=== PATIENT | male | born 1930 | race Caucasian/White ===

== ENCOUNTER → 2016-03-21 | Outpatient (CLI) | payer MEDICARE, OTHER ==
--- NOTE | 2016-03-22 02:19 | REP ---
Clinical: Idiopathic hydrocephalous. Technique: AP, Maxim and lateral views of the skull. Findings: A ventriculoperitoneal shunt is identified via right parietal approach extending across the midline at the region of the anterior horn lateral ventricles. Visualized portions of the shunt appear intact. Impression: Ventriculoperitoneal shunt unchanged in appearance and position when compared with 11/18/2015. Signed by Nuno Bearden MD 03/22/2016 02:10 A
== END ==
LOC: M RAD 15:36
PROVIDERS: ATTEND Neurological Surgery
DX: G91.2 (Idiopathic) normal pressure hydrocephalus (principal); Z98.2 Presence of cerebrospinal fluid drainage device

== ENCOUNTER → 2016-04-07 | Outpatient (REF) | payer OTHER ==
[2016-04-07 12:31] LABS: ALBUMIN/GLOBULIN RATIO 1.43 (1.00-1.93); ALKALINE PHOSPHATASE 65 U/L (45-117); ALT/SGPT 27 U/L (12-78); ANION GAP 6 MEQ/L (8-16); AST/SGOT 10 U/L (15-37); BILIRUBIN,TOTAL 0.6 MG/DL (0.2-1.0); BLOOD UREA NITROGEN 24 MG/DL (7-18); CALCIUM LEVEL 9.5 MG/DL (8.8-10.2); CARBON DIOXIDE LEVEL 34 MEQ/L (21-32); CHLORIDE LEVEL 101 MEQ/L (98-107); CREATININE FOR GFR 1.17 MG/DL (0.70-1.30); GLOMERULAR FILTRATION RATE > 60.0 (>35); GLUCOSE, FASTING 224 MG/DL (83-110); POTASSIUM SERUM 4.4 MEQ/L (3.5-5.1); SODIUM LEVEL 141 MEQ/L (136-145); TOTAL PROTEIN 6.8 GM/DL (6.4-8.2)
== END ==
LOC: M SFHCPLAZ 10:05
PROVIDERS: ATTEND Internal Medicine
DX: E11.9 Type 2 diabetes mellitus without complications (principal)

== ENCOUNTER → 2016-04-21 | Outpatient (CLI) | payer OTHER ==
--- NOTE | 2016-04-21 12:05 | REP ---
Clinical: Ventriculoperitoneal shunt. Comparison: 03/21/2016. Findings: A ventriculoperitoneal shunt via right occipital approach is identified and appears intact. Calvarium is otherwise unremarkable. Impression: A right ventriculoperitoneal shunt appears intact. Signed by Nuno Bearden MD 04/21/2016 11:57 A
== END ==
LOC: M WUC 11:20
PROVIDERS: ATTEND Neurological Surgery
DX: G91.2 (Idiopathic) normal pressure hydrocephalus (principal); Z98.2 Presence of cerebrospinal fluid drainage device

== ENCOUNTER → 2016-08-04 | Outpatient (CLI) | payer OTHER ==
[2016-08-04 15:04] LABS: CREATININE FOR GFR 1.36 MG/DL (0.70-1.30)
[2016-08-04 15:05] LABS: ALBUMIN/GLOBULIN RATIO 1.33 (1.00-1.93); BILIRUBIN,TOTAL 0.6 MG/DL (0.2-1.0); CALCIUM LEVEL 9.3 MG/DL (8.8-10.2); MAGNESIUM LEVEL 2.3 MG/DL (1.8-2.4); POTASSIUM SERUM 4.9 MEQ/L (3.5-5.1)
== END ==
LOC: M WUC 09:36
PROVIDERS: ATTEND Internal Medicine
DX: E11.9 Type 2 diabetes mellitus without complications (principal); I10 Essential (primary) hypertension; E78.00 Pure hypercholesterolemia, unspecified

== ENCOUNTER → 2016-09-26 | Outpatient (REF) | payer OTHER ==
[~2016-09-26] MED LIST: ASPI1TAB PO; CORE12.5 PO; DIGO0.127 PO; GLIP2.5T6 PO; JANU50TA22 PO; LASI20TA PO; LEXA1TAB2 PO; PROS5TAB PO; RANI15TA PO; REME15TA PO; SIMV10TA2 PO; SPIR25TA2 PO; XARE20TA PO
[2016-09-26 17:45] LABS: MEAN CORPUSCULAR HEMOGLOBIN 31.9 pg (27.0-33.0); MEAN CORPUSCULAR VOLUME 93.8 fl (80.0-96.0); RED CELL DISTRIBUTION WIDTH 13.1 % (11.5-14.5)
[2016-09-26 18:22] LABS: ALBUMIN 4.2 GM/DL (3.2-5.2); ALBUMIN/GLOBULIN RATIO 1.45 (1.00-1.93); BILIRUBIN,TOTAL 0.7 MG/DL (0.2-1.0); CALCIUM LEVEL 9.1 MG/DL (8.8-10.2); CREATININE FOR GFR 1.25 MG/DL (0.70-1.30); GLOMERULAR FILTRATION RATE 58.4 (>35); POTASSIUM SERUM 4.4 MEQ/L (3.5-5.1); TOTAL PROTEIN 7.1 GM/DL (6.4-8.2)
== END ==
LOC: M SFHCPLAZ 15:19
PROVIDERS: ATTEND Nurse Practitioner Adult Health
DX: R53.83 Other fatigue (principal)
CPT/HCPCS: 36415; 80053; 85027; G0463

== ENCOUNTER 2016-10-07 17:06 | Emergency (ER) | payer OTHER ==
[~2016-10-07] VITALS: Ht 167.6 cm; Wt 57.0 kg
[2016-10-07] MEDS ORDERED: SIMV10TA2 PO (17:20)
[2016-10-07] MEDS ORDERED: LEXA1TAB2 PO (17:20)
[2016-10-07] MEDS ORDERED: LASI20TA PO (17:20)
[2016-10-07] MEDS ORDERED: CORE12.5 PO (17:20)
[2016-10-07] MEDS ORDERED: RANI15TA PO (17:20)
[2016-10-07] MEDS ORDERED: JANU50TA22 PO (17:20)
[2016-10-07] MEDS ORDERED: PROS5TAB PO (17:20)
[2016-10-07] MEDS ORDERED: ASPI1TAB PO (17:25)
[2016-10-07] MEDS ORDERED: REME15TA PO (17:25)
[2016-10-07] MEDS ORDERED: GLIP2.5T6 PO (17:25)
[2016-10-07] MEDS ORDERED: DIGO0.127 PO (17:25)
[2016-10-07] MEDS ORDERED: SPIR25TA2 PO (17:25)
[2016-10-07] MEDS ORDERED: XARE20TA PO (17:25)
[2016-10-07] MEDS ORDERED: NS 1,000 ML IV SCH (18:30)
[2016-10-07 18:41] VITALS: BP 119/56
[2016-10-07 19:01] LABS: BASO % 0.9 % (0.0-1.0); EOS # 0.2 K/mm3 (0.0-0.50); EOS % 3.2 % (0.0-3.0); LARGE UNSTAINED CELL # 0.2 K/mm3 (0.0-0.4); LARGE UNSTAINED CELL % 3.5 % (0.0-4.0); LYMPH # 1.5 K/mm3 (1.5-4.5); LYMPH % 25.2 % (24.0-44.0); MEAN CORPUSCULAR HEMOGLOBIN 31.9 pg (27.0-33.0); MEAN CORPUSCULAR HGB CONC 34.4 g/dl (32.0-36.5); MEAN CORPUSCULAR VOLUME 92.8 fl (80.0-96.0); MONO # 0.5 K/mm3 (0.0-0.8); MONO % 9.2 % (0.0-5.0); PLATELET COUNT, AUTOMATED 171 k/mm3 (150-450); RED CELL DISTRIBUTION WIDTH 13.2 % (11.5-14.5); WHITE BLOOD COUNT 5.2 K/mm3 (4.0-10.0)
[2016-10-07 19:34] LABS: ALBUMIN 3.6 GM/DL (3.2-5.2); ALBUMIN/GLOBULIN RATIO 1.24 (1.00-1.93); ALKALINE PHOSPHATASE 59 U/L (45-117); ALT/SGPT 28 U/L (12-78); ANION GAP 8 MEQ/L (8-16); AST/SGOT 11 U/L (15-37); BILIRUBIN,DIRECT 0.1 MG/DL (0.0-0.2); BILIRUBIN,TOTAL 0.4 MG/DL (0.2-1.0); BLOOD UREA NITROGEN 23 MG/DL (7-18); CALCIUM LEVEL 8.8 MG/DL (8.8-10.2); CARBON DIOXIDE LEVEL 31 MEQ/L (21-32); CHLORIDE LEVEL 103 MEQ/L (98-107); CREATININE FOR GFR 1.14 MG/DL (0.70-1.30); GLOMERULAR FILTRATION RATE > 60.0 (>35); GLUCOSE, FASTING 160 MG/DL (83-110); POTASSIUM SERUM 4.1 MEQ/L (3.5-5.1); SODIUM LEVEL 142 MEQ/L (136-145); TOTAL PROTEIN 6.5 GM/DL (6.4-8.2)
--- NOTE | 2016-10-07 20:13 | REP ---
PA and lateral chest: Comparison is by 2013. 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 There is a dual chamber pacemaker, unchanged. The lung gardner are clear. The cardiac size is normal The miriam, mediastinum, and bony thorax are unremarkable. Impression: Negative PA and lateral chest. There is no interval change. Signed by Kalia Moody MD 10/07/2016 08:05 P
--- NOTE | 2016-10-08 10:16 | ECGEPIP ---
Stationary ECG Study [facility] - ED Test Date: 2016-10-07 Pat Name: CLEMENTE FELDMAN Department: Room: - Gender: M Store Clerk Cashier: : [id number] Requested By: TASNEEM Armendariz Order Number: [id number] Reading MD: Mague Basurto Measurements Intervals [place] Rate: 59 P: 134 UT: 191 QRS: -32 QRSD: 148 T: 58 QT: 418 QTc: 417 Interpretive Statements ELECTRONIC ATRIAL PACEMAKER MARKED LEFT AXIS DEVIATION RIGHT BUNDLE BRANCH BLOCK POSSIBLE SEPTAL MYOCARDIAL INFARCTION, PROBABLY OLD INCREASED RATE 06/27/11 Electronically Signed On 10-08-2016 10:16:24 EDT by Mague Basurto
== END 2016-10-07 20:44 | disposition home or self-care (01) ==
LOC: M ED 17:06
DX: E86.0 Dehydration (principal); I48.91 Unspecified atrial fibrillation; I50.9 Heart failure, unspecified; E11.9 Type 2 diabetes mellitus without complications; N40.0 Benign prostatic hyperplasia without lower urinary tract symptoms; Z95.0 Presence of cardiac pacemaker; Z79.82 Long term (current) use of aspirin; Z79.02 Long term (current) use of antithrombotics/antiplatelets; Z79.899 Other long term (current) drug therapy

== ENCOUNTER → 2017-03-13 | Outpatient (REF) | payer MEDICARE ==
[2017-03-13 19:01] LABS: HEMATOCRIT 38.5 % (42.0-52.0); HEMOGLOBIN 12.8 g/dl (14.0-18.0); MEAN CORPUSCULAR HEMOGLOBIN 31.4 pg (27.0-33.0); MEAN CORPUSCULAR HGB CONC 33.2 g/dl (32.0-36.5); MEAN CORPUSCULAR VOLUME 94.4 fl (80.0-96.0); PLATELET COUNT, AUTOMATED 216 10^3/uL (150-450); RED BLOOD COUNT 4.08 10^6/uL (4.30-6.10); RED CELL DISTRIBUTION WIDTH 12.7 % (11.5-14.5); WHITE BLOOD COUNT 5.4 10^3/uL (4.0-10.0)
[2017-03-13 19:20] LABS: ESTIMATED AVERAGE GLUCOSE 143 MG/DL (60-110); HEMOGLOBIN A1c 6.6 %
[2017-03-13 19:26] LABS: FOLATE 16.6 NG/ML; VITAMIN B12 LEVEL 294 PG/ML
[2017-03-13 19:31] LABS: ALBUMIN 4.1 GM/DL (3.2-5.2); ALBUMIN/GLOBULIN RATIO 1.21 (1.00-1.93); ALKALINE PHOSPHATASE 66 U/L (45-117); ALT/SGPT 26 U/L (12-78); ANION GAP 6 MEQ/L (8-16); AST/SGOT 13 U/L (7-37); BILIRUBIN,TOTAL 0.6 MG/DL (0.2-1.0); BLOOD UREA NITROGEN 27 MG/DL (7-18); CALCIUM LEVEL 8.9 MG/DL (8.8-10.2); CARBON DIOXIDE LEVEL 36 MEQ/L (21-32); CHLORIDE LEVEL 97 MEQ/L (98-107); CREATININE FOR GFR 1.35 MG/DL (0.70-1.30); GLOMERULAR FILTRATION RATE 53.3 (>35); GLUCOSE, FASTING 143 MG/DL (83-110); MAGNESIUM LEVEL 2.5 MG/DL (1.8-2.4); POTASSIUM SERUM 4.4 MEQ/L (3.5-5.1); SODIUM LEVEL 139 MEQ/L (136-145); THYROID STIMULATING HORMONE 0.875 uIU/ML (0.358-3.740); TOTAL PROTEIN 7.5 GM/DL (6.4-8.2)
== END ==
LOC: M SFHCPLAZ 16:49
DX: E11.9 Type 2 diabetes mellitus without complications (principal); I10 Essential (primary) hypertension; R53.82 Chronic fatigue, unspecified; Z51.81 Encounter for therapeutic drug level monitoring; Z79.01 Long term (current) use of anticoagulants
CPT/HCPCS: 82746

== ENCOUNTER 2017-04-24 16:02 | Inpatient (IN) | payer MEDICARE ==
[2017-04-24] MEDS: NS 1,000 ML IV (16:38)
[2017-04-24] MEDS: NS 500 ML IV (17:15)
[2017-04-24 17:19] LABS: BASO % 0.6 % (0.0-1.0); EOS # 0.1 10^3/uL (0.0-0.50); EOS % 1.7 % (0.0-3.0); HEMATOCRIT 33.5 % (42.0-52.0); HEMOGLOBIN 11.6 g/dl (14.0-18.0); IMMATURE GRANULOCYTE % 0.6 % (0-3.0); LYMPH # 1.6 10^3/uL (1.5-4.5); LYMPH % 30.3 % (24.0-44.0); MEAN CORPUSCULAR HGB CONC 34.6 g/dl (32.0-36.5); MEAN CORPUSCULAR VOLUME 92.3 fl (80.0-96.0); MONO # 0.8 10^3/uL (0.0-0.8); MONO % 14.5 % (0.0-5.0); NEUTROPHILS # 2.7 10^3/uL (1.8-7.7); NEUTROPHILS % 52.3 % (36.0-66.0); PLATELET COUNT, AUTOMATED 213 10^3/uL (150-450); RED BLOOD COUNT 3.63 10^6/uL (4.30-6.10); RED CELL DISTRIBUTION WIDTH 12.8 % (11.5-14.5); WHITE BLOOD COUNT 5.2 10^3/uL (4.0-10.0)
[2017-04-24 17:34] LABS: ANION GAP 4 MEQ/L (8-16); BLOOD UREA NITROGEN 23 MG/DL (7-18); CALCIUM LEVEL 8.5 MG/DL (8.8-10.2); CARBON DIOXIDE LEVEL 34 MEQ/L (21-32); CHLORIDE LEVEL 99 MEQ/L (98-107); CREATININE FOR GFR 0.97 MG/DL (0.70-1.30); GLOMERULAR FILTRATION RATE > 60.0 (>35); GLUCOSE, FASTING 126 MG/DL (70-100); POTASSIUM SERUM 4.4 MEQ/L (3.5-5.1); SODIUM LEVEL 137 MEQ/L (136-145)
[2017-04-24 17:37] LABS: AMMONIA 11 uMOL/L (<32)
[2017-04-24 17:39] LABS: ALBUMIN 3.7 GM/DL (3.2-5.2); ALBUMIN/GLOBULIN RATIO 1.23 (1.00-1.93); ALKALINE PHOSPHATASE 72 U/L (45-117); ALT/SGPT 30 U/L (12-78); AST/SGOT 14 U/L (7-37); BILIRUBIN,DIRECT 0.1 MG/DL (0.0-0.2); BILIRUBIN,TOTAL 0.6 MG/DL (0.2-1.0); CPK CREATINE PHOSPHOKINASE 38 U/L (39-308); SALICYLATE LEVEL < 1.7 MG/DL (5.0-30.0); TOTAL PROTEIN 6.7 GM/DL (6.4-8.2); TROPONIN I 0.02 NG/ML (< 0.10)
[2017-04-24 17:42] LABS: LACTIC ACID SEPSIS PROTOCOL 1.1 MMOL/L (0.4-2.0)
[2017-04-24 17:44] LABS: ACETAMINOPHEN LEVEL < 2.0 UG/ML (10.0-30.0); ETHYL ALCOHOL (ETHANOL) < 0.003 % (0.000-0.010)
[2017-04-24 17:45] LABS: CK-MB VALUE MASS 1.2 NG/ML (0.0-3.6); MB/CK RELATIVE INDEX 3.15 (< OR =4)
[2017-04-24 18:14] LABS: DIGOXIN LEVEL 1.3 NG/ML (0.5-2.0)
[2017-04-24 19:27] LABS: KETONE, URINE AUTO RFX NEGATIVE (NEGATIVE); LEUKOCYTE ESTERASE UR AUTO RFX NEGATIVE (NEGATIVE); NITRITE, URINE AUTO RFX NEGATIVE (NEGATIVE); RBC, URINE AUTO RFX 1 /HPF (0-3); SPECIFIC GRAVITY UR AUTO RFX 1.017 (1.002-1.035); SQUAM EPITHELIAL CELL UR AURFX 0 /HPF (0-6); WBC, URINE AUTO RFX 0 /HPF (0-3)
[2017-04-24 19:49] LABS: BEDSIDE GLUCOSE 130 MG/DL (83-110)
[2017-04-24] MEDS ORDERED: ACETAMINOPHEN TAB 650MG DOSE (2X325MG) PO (20:30)
[2017-04-24] MEDS: NS 0.45% 1,000 ML IV (23:30)
[2017-04-25 07:13] LABS: HEMATOCRIT 29.3 % (42.0-52.0); HEMOGLOBIN 10.4 g/dl (14.0-18.0); MEAN CORPUSCULAR HEMOGLOBIN 32.9 pg (27.0-33.0); MEAN CORPUSCULAR HGB CONC 35.5 g/dl (32.0-36.5); MEAN CORPUSCULAR VOLUME 92.7 fl (80.0-96.0); PLATELET COUNT, AUTOMATED 189 10^3/uL (150-450); RED BLOOD COUNT 3.16 10^6/uL (4.30-6.10); RED CELL DISTRIBUTION WIDTH 12.8 % (11.5-14.5)
[2017-04-25 07:36] LABS: ANION GAP 7 MEQ/L (8-16); BLOOD UREA NITROGEN 17 MG/DL (7-18); CALCIUM LEVEL 8.1 MG/DL (8.8-10.2); CARBON DIOXIDE LEVEL 28 MEQ/L (21-32); CHLORIDE LEVEL 102 MEQ/L (98-107); CREATININE FOR GFR 0.72 MG/DL (0.70-1.30); GLOMERULAR FILTRATION RATE > 60.0 (>35); GLUCOSE, FASTING 133 MG/DL (70-100); POTASSIUM SERUM 4.3 MEQ/L (3.5-5.1); SODIUM LEVEL 137 MEQ/L (136-145)
[2017-04-25] MEDS ORDERED: ENOXAPARIN 40 MG/0.4 ML SYRINGE (J1650) SC (09:00)
[2017-04-25] MEDS ORDERED: VARIBAR NECTAR 40% w/v 240ML SUSP BTL As Ordered (12:14)
[2017-04-25] MEDS ORDERED: VARIBAR PUDDING 40% w/v 230ML TUBE As Ordered (12:14)
[2017-04-25] MEDS ORDERED: E-Z-PAQUE 96% w/w SUSP 176GM BTL As Ordered (12:15)
[2017-04-25] MEDS ORDERED: DEXTROSE 50% 50 ML SYRINGE IV (16:45)
[2017-04-25] MEDS ORDERED: GLUCOSE 4 GM CHEW TABLET PO (16:45)
[2017-04-25] MEDS ORDERED: GLUCAGON FOR INJ 1 MG VIAL (J1610) SC (16:45)
[2017-04-25] MEDS ORDERED: RIVAROXABAN 20 MG TAB (XARELTO) PO (18:00)
[2017-04-25] MEDS: HumaLOG INSULIN (NovoLOG) PER UNIT SC (18:00)
[2017-04-25 18:46] LABS: VITAMIN B12 LEVEL 235 PG/ML (247-911)
[2017-04-25] MEDS: D5W/0.9% SODIUM CHLORIDE 1,000 ML IV (19:42)
[2017-04-25] MEDS: THIAMINE HCL 200 MG/2 ML VIAL (J3411) IV (21:05)
[2017-04-26] MEDS: HumaLOG INSULIN (NovoLOG) PER UNIT SC ×3 (00:13→12:55)
[2017-04-26] MEDS: CYANOCOBALAMIN 1,000 MCG/ML VIAL (J3420) IM ×2 (00:16→08:50)
[2017-04-26 00:24] LABS: BEDSIDE GLUCOSE 169 MG/DL (83-110)
[2017-04-26] MEDS: D5W/0.9% SODIUM CHLORIDE 1,000 ML IV ×2 (06:23→17:57)
[2017-04-26 06:57] LABS: HEMATOCRIT 28.7 % (42.0-52.0); HEMOGLOBIN 10.1 g/dl (14.0-18.0); MEAN CORPUSCULAR HEMOGLOBIN 32.6 pg (27.0-33.0); MEAN CORPUSCULAR HGB CONC 35.2 g/dl (32.0-36.5); MEAN CORPUSCULAR VOLUME 92.6 fl (80.0-96.0); PLATELET COUNT, AUTOMATED 194 10^3/uL (150-450); RED CELL DISTRIBUTION WIDTH 12.9 % (11.5-14.5); WHITE BLOOD COUNT 4.7 10^3/uL (4.0-10.0)
[2017-04-26 07:16] LABS: ANION GAP 7 MEQ/L (8-16); BLOOD UREA NITROGEN 12 MG/DL (7-18); CALCIUM LEVEL 7.8 MG/DL (8.8-10.2); CARBON DIOXIDE LEVEL 27 MEQ/L (21-32); CHLORIDE LEVEL 104 MEQ/L (98-107); CREATININE FOR GFR 0.72 MG/DL (0.70-1.30); GLOMERULAR FILTRATION RATE > 60.0 (>35); GLUCOSE, FASTING 173 MG/DL (70-100); POTASSIUM SERUM 3.7 MEQ/L (3.5-5.1); SODIUM LEVEL 138 MEQ/L (136-145)
[2017-04-26] MEDS: THIAMINE HCL 200 MG/2 ML VIAL (J3411) IV (08:50)
[2017-04-26 11:50] LABS: BEDSIDE GLUCOSE 201 MG/DL (83-110)
[2017-04-26 12:45] LABS: BEDSIDE GLUCOSE 188 MG/DL (83-110)
== END 2017-04-26 18:28 | disposition short-term general hospital (02) | DRG 71 ==
LOC: M MSPAV 04-25 10:05 → M ED 16:02 → M ED INP 20:23
DX: G93.41 Metabolic encephalopathy (principal); G91.2 (Idiopathic) normal pressure hydrocephalus; E46 Unspecified protein-calorie malnutrition; M50.00 Cervical disc disorder with myelopathy, unspecified cervical region; I48.0 Paroxysmal atrial fibrillation; E11.9 Type 2 diabetes mellitus without complications; G47.33 Obstructive sleep apnea (adult) (pediatric); E86.0 Dehydration; E53.8 Deficiency of other specified B group vitamins; N40.0 Benign prostatic hyperplasia without lower urinary tract symptoms; Z95.0 Presence of cardiac pacemaker; I49.5 Sick sinus syndrome; I11.0 Hypertensive heart disease with heart failure; F03.90 Unspecified dementia, unspecified severity, without behavioral disturbance, psychotic disturbance, mood disturbance, and anxiety; Z66 Do not resuscitate; Z79.82 Long term (current) use of aspirin; Z79.899 Other long term (current) drug therapy; I50.9 Heart failure, unspecified; G62.9 Polyneuropathy, unspecified; R62.7 Adult failure to thrive; R13.10 Dysphagia, unspecified

== ENCOUNTER 2017-04-29 21:05 | Inpatient (IN) | payer MEDICARE ==
[~2017-04-29 21:05] MED LIST changes: +ACETAMINOPHEN TAB 650MG DOSE (2X325MG) PO; -ASPI1TAB PO; -CORE12.5 PO; -DIGO0.127 PO; -GLIP2.5T6 PO; -JANU50TA22 PO; -LASI20TA PO; -LEXA1TAB2 PO; +ONDANSETRON 4MG/2ML VIAL (J2405) IV; -PROS5TAB PO; -RANI15TA PO; -REME15TA PO; -SIMV10TA2 PO; -SPIR25TA2 PO; -XARE20TA PO
[2017-04-29] MEDS ORDERED: GLUCAGON FOR INJ 1 MG VIAL (J1610) SC (22:45)
[2017-04-29] MEDS ORDERED: GLUCOSE 4 GM CHEW TABLET PO (22:45)
[2017-04-29] MEDS ORDERED: DEXTROSE 50% 50 ML SYRINGE IV (22:45)
[2017-04-29] MEDS: HumaLOG INSULIN (NovoLOG) PER UNIT SC (22:56)
[2017-04-29 22:59] LABS: BEDSIDE GLUCOSE 263 MG/DL (83-110)
[2017-04-30 03:32] LABS: AMORPHOUS SEDIMENT SMALL (NEGATIVE); APPEARANCE, URINE CLEAR (CLEAR); BACTERIA, URINE AUTO NEGATIVE (NEGATIVE); BILIRUBIN, URINE AUTO NEGATIVE (NEGATIVE); BLOOD, URINE BLOOD NEGATIVE (NEGATIVE); COLOR, URINE YELLOW (YELLOW); GLUCOSE, URINE (UA) AUTO 3+ mg/dL (NEGATIVE); KETONE, URINE AUTO NEGATIVE (NEGATIVE); LEUKOCYTE ESTERASE, URINE AUTO NEGATIVE (NEGATIVE); MUCUS, URINE SMALL (NEGATIVE); NITRITE, URINE AUTO NEGATIVE (NEGATIVE); PROTEIN, URINE AUTO NEGATIVE (NEGATIVE); RBC, URINE AUTO 6 /HPF (0-3); SPECIFIC GRAVITY URINE AUTO 1.012 (1.002-1.035); SQUAMOUS EPITHELIAL CELL UR AU 0 /HPF (0-6); UROBILINOGEN, URINE AUTO 0.2 mg/dL (0.0-2.0); WBC, URINE AUTO 12 /HPF (0-3)
[2017-04-30] MEDS ORDERED: METHYLPHENIDATE 5 MG TAB PO ×2 (07:00→09:00)
[2017-04-30 07:48] LABS: HEMATOCRIT 25.5 % (42.0-52.0); HEMOGLOBIN 8.9 g/dl (14.0-18.0); MEAN CORPUSCULAR HEMOGLOBIN 32.5 pg (27.0-33.0); MEAN CORPUSCULAR HGB CONC 34.9 g/dl (32.0-36.5); MEAN CORPUSCULAR VOLUME 93.1 fl (80.0-96.0); PLATELET COUNT, AUTOMATED 205 10^3/uL (150-450); RED BLOOD COUNT 2.74 10^6/uL (4.30-6.10); RED CELL DISTRIBUTION WIDTH 13.2 % (11.5-14.5)
[2017-04-30] MEDS: HumaLOG INSULIN (NovoLOG) PER UNIT SC ×4 (08:13→21:27)
[2017-04-30] MEDS: RIVAROXABAN 20 MG TAB (XARELTO) PO (08:14)
[2017-04-30] MEDS: ASPIRIN 81 MG ENTERIC TAB PO (08:14)
[2017-04-30] MEDS: ESCITALOPRAM OXALATE 10 MG TAB (LEXAPRO) PO (08:14)
[2017-04-30] MEDS: FINASTERIDE 5 MG TAB PO (08:15)
[2017-04-30 08:22] LABS: ALBUMIN 2.4 GM/DL (3.2-5.2); ALBUMIN/GLOBULIN RATIO 0.75 (1.00-1.93); ALKALINE PHOSPHATASE 51 U/L (45-117); ALT/SGPT 25 U/L (12-78); ANION GAP 6 MEQ/L (8-16); AST/SGOT 14 U/L (7-37); BILIRUBIN,TOTAL 0.4 MG/DL (0.2-1.0); BLOOD UREA NITROGEN 8 MG/DL (7-18); CALCIUM LEVEL 7.9 MG/DL (8.8-10.2); CARBON DIOXIDE LEVEL 30 MEQ/L (21-32); CHLORIDE LEVEL 106 MEQ/L (98-107); CREATININE FOR GFR 0.72 MG/DL (0.70-1.30); GLOMERULAR FILTRATION RATE > 60.0 (>35); GLUCOSE, FASTING 141 MG/DL (70-100); POTASSIUM SERUM 3.6 MEQ/L (3.5-5.1); PREALBUMIN 7.1 MG/DL (20.0-40.0); SODIUM LEVEL 142 MEQ/L (136-145); TOTAL PROTEIN 5.6 GM/DL (6.4-8.2)
[2017-04-30] MEDS: CARVedilol 3.125 MG TAB PO ×2 (09:00→21:27)
[2017-04-30] MEDS: DIGOXIN 0.125 MG TAB PO (09:00)
[2017-04-30] MEDS ORDERED: METHYLPHENIDATE 20 MG SR TAB (RITALIN SR) PO (09:24)
[2017-04-30] MEDS: SPIRONOLACTONE 25 MG TAB PO (09:59)
[2017-04-30] MEDS: FUROSEMIDE 20 MG TAB PO (10:01)
[2017-04-30] MEDS: METHYLPHENIDATE 20 MG SR TAB (RITALIN SR) PO (10:24)
[2017-04-30 15:37] LABS: BEDSIDE GLUCOSE 150 MG/DL (83-110)
[2017-04-30 15:37] LABS: BEDSIDE GLUCOSE 184 MG/DL (83-110)
[2017-04-30 16:55] LABS: BEDSIDE GLUCOSE 195 MG/DL (83-110)
[2017-04-30] MEDS: CYANOCOBALAMIN 1,000 MCG/ML VIAL (J3420) SC (17:26)
[2017-04-30] MEDS: THIAMINE HCL 200 MG/2 ML VIAL (J3411) IV (17:26)
[2017-04-30 20:28] LABS: BEDSIDE GLUCOSE 149 MG/DL (83-110)
[2017-04-30] MEDS: SIMVASTATIN 10 MG TAB PO (21:27)
[2017-04-30] MEDS: SENNA 8.6 MG TAB (SENOKOT) PO (21:27)
[2017-05-01 06:05] LABS: HEMATOCRIT 26.6 % (42.0-52.0); HEMOGLOBIN 9.1 g/dl (14.0-18.0); MEAN CORPUSCULAR HEMOGLOBIN 31.6 pg (27.0-33.0); MEAN CORPUSCULAR HGB CONC 34.2 g/dl (32.0-36.5); MEAN CORPUSCULAR VOLUME 92.4 fl (80.0-96.0); PLATELET COUNT, AUTOMATED 212 10^3/uL (150-450); RED BLOOD COUNT 2.88 10^6/uL (4.30-6.10); RED CELL DISTRIBUTION WIDTH 12.8 % (11.5-14.5); WHITE BLOOD COUNT 5.4 10^3/uL (4.0-10.0)
[2017-05-01] MEDS: METHYLPHENIDATE 20 MG SR TAB (RITALIN SR) PO (06:29)
[2017-05-01 06:31] LABS: ALBUMIN 2.4 GM/DL (3.2-5.2); ALBUMIN/GLOBULIN RATIO 0.75 (1.00-1.93); ALKALINE PHOSPHATASE 51 U/L (45-117); ALT/SGPT 24 U/L (12-78); ANION GAP 6 MEQ/L (8-16); AST/SGOT 12 U/L (7-37); BILIRUBIN,TOTAL 0.5 MG/DL (0.2-1.0); BLOOD UREA NITROGEN 8 MG/DL (7-18); CALCIUM LEVEL 8.2 MG/DL (8.8-10.2); CARBON DIOXIDE LEVEL 31 MEQ/L (21-32); CHLORIDE LEVEL 104 MEQ/L (98-107); CREATININE FOR GFR 0.73 MG/DL (0.70-1.30); GLOMERULAR FILTRATION RATE > 60.0 (>35); GLUCOSE, FASTING 141 MG/DL (70-100); MAGNESIUM LEVEL 1.7 MG/DL (1.8-2.4); POTASSIUM SERUM 3.5 MEQ/L (3.5-5.1); SODIUM LEVEL 141 MEQ/L (136-145); TOTAL PROTEIN 5.6 GM/DL (6.4-8.2)
[2017-05-01] MEDS: HumaLOG INSULIN (NovoLOG) PER UNIT SC ×4 (08:08→21:00)
[2017-05-01] MEDS: ASPIRIN 81 MG ENTERIC TAB PO (09:39)
[2017-05-01] MEDS: CYANOCOBALAMIN 1,000 MCG/ML VIAL (J3420) SC (09:39)
[2017-05-01] MEDS: SPIRONOLACTONE 25 MG TAB PO (09:39)
[2017-05-01] MEDS: RIVAROXABAN 20 MG TAB (XARELTO) PO (09:39)
[2017-05-01] MEDS: THIAMINE HCL 200 MG/2 ML VIAL (J3411) IV (09:39)
[2017-05-01] MEDS: ESCITALOPRAM OXALATE 10 MG TAB (LEXAPRO) PO (09:39)
[2017-05-01] MEDS: CARVedilol 3.125 MG TAB PO ×2 (09:40→22:17)
[2017-05-01] MEDS: FINASTERIDE 5 MG TAB PO (09:40)
[2017-05-01] MEDS: FUROSEMIDE 20 MG TAB PO (09:40)
[2017-05-01] MEDS: DIGOXIN 0.125 MG TAB PO (09:41)
[2017-05-01 12:22] LABS: BEDSIDE GLUCOSE 272 MG/DL (83-110)
[2017-05-01 21:52] LABS: BEDSIDE GLUCOSE 192 MG/DL (83-110)
[2017-05-01 21:52] LABS: BEDSIDE GLUCOSE 174 MG/DL (83-110)
[2017-05-01] MEDS: SIMVASTATIN 10 MG TAB PO (22:16)
[2017-05-01] MEDS: SENNA 8.6 MG TAB (SENOKOT) PO (22:17)
[2017-05-02 06:16] LABS: HEMATOCRIT 27.7 % (42.0-52.0); HEMOGLOBIN 9.2 g/dl (14.0-18.0); MEAN CORPUSCULAR HEMOGLOBIN 31.1 pg (27.0-33.0); MEAN CORPUSCULAR HGB CONC 33.2 g/dl (32.0-36.5); MEAN CORPUSCULAR VOLUME 93.6 fl (80.0-96.0); PLATELET COUNT, AUTOMATED 235 10^3/uL (150-450); RED BLOOD COUNT 2.96 10^6/uL (4.30-6.10); RED CELL DISTRIBUTION WIDTH 12.8 % (11.5-14.5); WHITE BLOOD COUNT 5.2 10^3/uL (4.0-10.0)
[2017-05-02] MEDS: METHYLPHENIDATE 20 MG SR TAB (RITALIN SR) PO (06:20)
[2017-05-02 06:32] LABS: ALBUMIN 2.6 GM/DL (3.2-5.2); ALBUMIN/GLOBULIN RATIO 0.76 (1.00-1.93); ALKALINE PHOSPHATASE 55 U/L (45-117); ALT/SGPT 26 U/L (12-78); ANION GAP 5 MEQ/L (8-16); AST/SGOT 11 U/L (7-37); BILIRUBIN,TOTAL 0.5 MG/DL (0.2-1.0); BLOOD UREA NITROGEN 11 MG/DL (7-18); CALCIUM LEVEL 8.2 MG/DL (8.8-10.2); CARBON DIOXIDE LEVEL 33 MEQ/L (21-32); CHLORIDE LEVEL 103 MEQ/L (98-107); CREATININE FOR GFR 0.74 MG/DL (0.70-1.30); GLOMERULAR FILTRATION RATE > 60.0 (>35); GLUCOSE, FASTING 123 MG/DL (70-100); MAGNESIUM LEVEL 1.6 MG/DL (1.8-2.4); POTASSIUM SERUM 3.6 MEQ/L (3.5-5.1); SODIUM LEVEL 141 MEQ/L (136-145)
[2017-05-02 07:09] LABS: BEDSIDE GLUCOSE 142 MG/DL (83-110)
[2017-05-02] MEDS: HumaLOG INSULIN (NovoLOG) PER UNIT SC ×4 (07:24→21:00)
[2017-05-02] MEDS: ASPIRIN 81 MG ENTERIC TAB PO (08:20)
[2017-05-02] MEDS: RIVAROXABAN 20 MG TAB (XARELTO) PO (08:20)
[2017-05-02] MEDS: CYANOCOBALAMIN 1,000 MCG/ML VIAL (J3420) SC (08:21)
[2017-05-02] MEDS: ESCITALOPRAM OXALATE 10 MG TAB (LEXAPRO) PO (08:21)
[2017-05-02] MEDS: THIAMINE HCL 200 MG/2 ML VIAL (J3411) IV (08:21)
[2017-05-02] MEDS: FUROSEMIDE 20 MG TAB PO (08:22)
[2017-05-02] MEDS: FINASTERIDE 5 MG TAB PO (08:22)
[2017-05-02] MEDS: SPIRONOLACTONE 25 MG TAB PO (08:22)
[2017-05-02] MEDS: DIGOXIN 0.125 MG TAB PO (08:30)
[2017-05-02] MEDS: CARVedilol 3.125 MG TAB PO ×2 (10:22→21:40)
[2017-05-02 16:42] LABS: BEDSIDE GLUCOSE 244 MG/DL (83-110)
[2017-05-02 16:42] LABS: BEDSIDE GLUCOSE 165 MG/DL (83-110)
[2017-05-02] MEDS: SENNA 8.6 MG TAB (SENOKOT) PO (21:40)
[2017-05-02] MEDS: SIMVASTATIN 10 MG TAB PO (21:41)
[2017-05-02 21:56] LABS: BEDSIDE GLUCOSE 231 MG/DL (83-110)
[2017-05-03] MEDS: METHYLPHENIDATE 20 MG SR TAB (RITALIN SR) PO (06:08)
[2017-05-03 06:17] LABS: HEMATOCRIT 27.6 % (42.0-52.0); HEMOGLOBIN 9.3 g/dl (14.0-18.0); MEAN CORPUSCULAR HEMOGLOBIN 31.1 pg (27.0-33.0); MEAN CORPUSCULAR HGB CONC 33.7 g/dl (32.0-36.5); MEAN CORPUSCULAR VOLUME 92.3 fl (80.0-96.0); PLATELET COUNT, AUTOMATED 252 10^3/uL (150-450); RED BLOOD COUNT 2.99 10^6/uL (4.30-6.10); RED CELL DISTRIBUTION WIDTH 12.9 % (11.5-14.5); WHITE BLOOD COUNT 5.2 10^3/uL (4.0-10.0)
[2017-05-03 06:31] LABS: ALBUMIN 2.5 GM/DL (3.2-5.2); ALBUMIN/GLOBULIN RATIO 0.69 (1.00-1.93); ALKALINE PHOSPHATASE 54 U/L (45-117); ALT/SGPT 24 U/L (12-78); ANION GAP 6 MEQ/L (8-16); AST/SGOT 15 U/L (7-37); BILIRUBIN,TOTAL 0.3 MG/DL (0.2-1.0); BLOOD UREA NITROGEN 12 MG/DL (7-18); CALCIUM LEVEL 8.3 MG/DL (8.8-10.2); CARBON DIOXIDE LEVEL 32 MEQ/L (21-32); CHLORIDE LEVEL 103 MEQ/L (98-107); CREATININE FOR GFR 0.81 MG/DL (0.70-1.30); GLOMERULAR FILTRATION RATE > 60.0 (>35); GLUCOSE, FASTING 126 MG/DL (70-100); POTASSIUM SERUM 4.1 MEQ/L (3.5-5.1); SODIUM LEVEL 141 MEQ/L (136-145); TOTAL PROTEIN 6.1 GM/DL (6.4-8.2)
[2017-05-03] MEDS: THIAMINE HCL 200 MG/2 ML VIAL (J3411) IV (09:02)
[2017-05-03] MEDS: CYANOCOBALAMIN 1,000 MCG/ML VIAL (J3420) SC (09:03)
[2017-05-03] MEDS: HumaLOG INSULIN (NovoLOG) PER UNIT SC ×2 (09:03→12:21)
[2017-05-03] MEDS: ASPIRIN 81 MG ENTERIC TAB PO (09:03)
[2017-05-03] MEDS: FINASTERIDE 5 MG TAB PO (09:04)
[2017-05-03] MEDS: SPIRONOLACTONE 25 MG TAB PO (09:04)
[2017-05-03] MEDS: DIGOXIN 0.125 MG TAB PO (09:04)
[2017-05-03] MEDS: FUROSEMIDE 20 MG TAB PO (09:05)
[2017-05-03] MEDS: RIVAROXABAN 20 MG TAB (XARELTO) PO (09:05)
[2017-05-03] MEDS: ESCITALOPRAM OXALATE 10 MG TAB (LEXAPRO) PO (09:05)
[2017-05-03] MEDS: CARVedilol 3.125 MG TAB PO (09:07)
[2017-05-03 11:48] LABS: BEDSIDE GLUCOSE 203 MG/DL (83-110)
== END 2017-05-03 13:38 | disposition home or self-care (01) | DRG 71 ==
LOC: M MSPAV 21:05
PROVIDERS: Internal Medicine
DX: G93.41 Metabolic encephalopathy (principal); G91.2 (Idiopathic) normal pressure hydrocephalus; I50.32 Chronic diastolic (congestive) heart failure; M50.00 Cervical disc disorder with myelopathy, unspecified cervical region; F03.90 Unspecified dementia, unspecified severity, without behavioral disturbance, psychotic disturbance, mood disturbance, and anxiety; Z66 Do not resuscitate; I11.0 Hypertensive heart disease with heart failure; I48.0 Paroxysmal atrial fibrillation; G47.33 Obstructive sleep apnea (adult) (pediatric); E11.9 Type 2 diabetes mellitus without complications; N40.0 Benign prostatic hyperplasia without lower urinary tract symptoms; Z95.0 Presence of cardiac pacemaker; I69.391 Dysphagia following cerebral infarction; I49.5 Sick sinus syndrome; Z79.899 Other long term (current) drug therapy; Z79.82 Long term (current) use of aspirin; E53.8 Deficiency of other specified B group vitamins

== ENCOUNTER → 2017-05-08 | Outpatient (REF) ==
[2017-05-08 08:21] LABS: HEMATOCRIT 32.9 % (42.0-52.0); HEMOGLOBIN 10.9 g/dl (14.0-18.0); MEAN CORPUSCULAR HEMOGLOBIN 31.3 pg (27.0-33.0); MEAN CORPUSCULAR HGB CONC 33.1 g/dl (32.0-36.5); MEAN CORPUSCULAR VOLUME 94.5 fl (80.0-96.0); PLATELET COUNT, AUTOMATED 329 10^3/uL (150-450); RED BLOOD COUNT 3.48 10^6/uL (4.30-6.10); RED CELL DISTRIBUTION WIDTH 13.2 % (11.5-14.5); WHITE BLOOD COUNT 8.3 10^3/uL (4.0-10.0)
[2017-05-08 09:07] LABS: ALBUMIN 3.4 GM/DL (3.2-5.2); ALBUMIN/GLOBULIN RATIO 1.03 (1.00-1.93); ALKALINE PHOSPHATASE 69 U/L (45-117); ALT/SGPT 28 U/L (12-78); ANION GAP 7 MEQ/L (8-16); AST/SGOT 13 U/L (7-37); BILIRUBIN,TOTAL 0.6 MG/DL (0.2-1.0); BLOOD UREA NITROGEN 15 MG/DL (7-18); CALCIUM LEVEL 8.9 MG/DL (8.8-10.2); CARBON DIOXIDE LEVEL 32 MEQ/L (21-32); CHLORIDE LEVEL 100 MEQ/L (98-107); CREATININE FOR GFR 0.95 MG/DL (0.70-1.30); DIGOXIN LEVEL 0.8 NG/ML (0.5-2.0); GLOMERULAR FILTRATION RATE > 60.0 (>35); GLUCOSE, FASTING 107 MG/DL (70-100); POTASSIUM SERUM 4.5 MEQ/L (3.5-5.1); SODIUM LEVEL 139 MEQ/L (136-145); TOTAL PROTEIN 6.7 GM/DL (6.4-8.2)
[2017-05-08 11:12] LABS: ESTIMATED AVERAGE GLUCOSE 163 MG/DL (60-110); HEMOGLOBIN A1c 7.3 %
== END ==
LOC: SKLAB2 07:00
DX: I48.91 Unspecified atrial fibrillation (principal); I10 Essential (primary) hypertension; D64.9 Anemia, unspecified; E11.9 Type 2 diabetes mellitus without complications

== ENCOUNTER → 2017-05-25 | Outpatient (REF) ==
[2017-05-25 14:24] LABS: AMORPHOUS SEDIMENT MODERATE (NEGATIVE); APPEARANCE, URINE CLOUDY (CLEAR); BACTERIA, URINE AUTO 1+ (NEGATIVE); BILIRUBIN, URINE AUTO NEGATIVE (NEGATIVE); BLOOD, URINE BLOOD 2+ (NEGATIVE); COLOR, URINE YELLOW (YELLOW); GLUCOSE, URINE (UA) AUTO 1+ mg/dL (NEGATIVE); KETONE, URINE AUTO NEGATIVE (NEGATIVE); LEUKOCYTE ESTERASE, URINE AUTO 3+ (NEGATIVE); MUCUS, URINE SMALL (NEGATIVE); NITRITE, URINE AUTO NEGATIVE (NEGATIVE); PROTEIN, URINE AUTO 1+ mg/dL (NEGATIVE); RBC, URINE AUTO 20 /HPF (0-3); SPECIFIC GRAVITY URINE AUTO 1.011 (1.002-1.035); SQUAMOUS EPITHELIAL CELL UR AU 0 /HPF (0-6); UROBILINOGEN, URINE AUTO 0.2 mg/dL (0.0-2.0); WBC, URINE AUTO TNTC /HPF (0-3)
== END ==
LOC: SKLAB2 13:55
DX: R50.9 Fever, unspecified (principal); R35.0 Frequency of micturition

== ENCOUNTER → 2017-06-17 | Outpatient (REF) | payer MEDICARE, MEDICAID | LOC: M LAB 15:40 | DX: R09.02 Hypoxemia (principal) | CPT/HCPCS: 71045 ==

== ENCOUNTER → 2017-07-04 | Outpatient (CLI) | payer MEDICAID, MEDICARE | LOC: M ST 13:06 | DX: R13.12 Dysphagia, oropharyngeal phase (principal) | CPT/HCPCS: 74230 ==

== ENCOUNTER → 2017-08-02 | Outpatient (REF) | payer MEDICARE, MEDICAID | LOC: SKLAB2 02:14 | DX: Z13.9 Encounter for screening, unspecified (principal) | CPT/HCPCS: 82270 ==

== ENCOUNTER → 2017-08-07 | Outpatient (REF) ==
[2017-08-07 08:53] LABS: HEMATOCRIT 27.9 % (42.0-52.0); HEMOGLOBIN 9.2 g/dl (13.5-17.5); MEAN CORPUSCULAR HEMOGLOBIN 30.9 pg (27.0-33.0); MEAN CORPUSCULAR VOLUME 93.6 fl (80.0-96.0); PLATELET COUNT, AUTOMATED 205 10^3/uL (150-450); RED BLOOD COUNT 2.98 10^6/uL (4.30-6.10); RED CELL DISTRIBUTION WIDTH 15.3 % (11.5-14.5); WHITE BLOOD COUNT 6.5 10^3/uL (4.0-10.0)
== END ==
LOC: SKLAB2 07:30
DX: D64.9 Anemia, unspecified (principal)

== ENCOUNTER → 2017-08-08 | Outpatient (REF) | payer MEDICARE, MEDICAID ==
[2017-08-08 07:18] LABS: HEMATOCRIT 30.6 % (42.0-52.0); HEMOGLOBIN 10.4 g/dl (13.5-17.5); MEAN CORPUSCULAR HEMOGLOBIN 31.5 pg (27.0-33.0); MEAN CORPUSCULAR VOLUME 92.7 fl (80.0-96.0); PLATELET COUNT, AUTOMATED 210 10^3/uL (150-450); RED CELL DISTRIBUTION WIDTH 15.1 % (11.5-14.5); WHITE BLOOD COUNT 8.4 10^3/uL (4.0-10.0)
== END ==
LOC: SKLAB2 07:00
DX: D64.9 Anemia, unspecified (principal)
CPT/HCPCS: 36415

== ENCOUNTER → 2017-08-10 | Outpatient (REF) | payer MEDICARE, MEDICAID ==
[2017-08-10 13:43] LABS: ANION GAP 9 MEQ/L (8-16); BLOOD UREA NITROGEN 38 MG/DL (7-18); CALCIUM LEVEL 8.8 MG/DL (8.8-10.2); CARBON DIOXIDE LEVEL 30 MEQ/L (21-32); CHLORIDE LEVEL 99 MEQ/L (98-107); GLOMERULAR FILTRATION RATE 51.2 (>35); GLUCOSE, FASTING 198 MG/DL (70-100); POTASSIUM SERUM 4.6 MEQ/L (3.5-5.1); SODIUM LEVEL 138 MEQ/L (136-145)
[2017-08-10 14:29] LABS: AMORPHOUS SEDIMENT SMALL (NEGATIVE); APPEARANCE, URINE CLOUDY (CLEAR); BACTERIA, URINE AUTO 2+ (NEGATIVE); BILIRUBIN, URINE AUTO NEGATIVE (NEGATIVE); BLOOD, URINE BLOOD 3+ (NEGATIVE); COLOR, URINE YELLOW (YELLOW); GLUCOSE, URINE (UA) AUTO 3+ mg/dL (NEGATIVE); KETONE, URINE AUTO NEGATIVE (NEGATIVE); LEUKOCYTE ESTERASE, URINE AUTO 3+ (NEGATIVE); NITRITE, URINE AUTO NEGATIVE (NEGATIVE); PROTEIN, URINE AUTO 1+ mg/dL (NEGATIVE); RBC, URINE AUTO 33 /HPF (0-3); SQUAMOUS EPITHELIAL CELL UR AU 0 /HPF (0-6); UROBILINOGEN, URINE AUTO 0.2 mg/dL (0.0-2.0); WBC, URINE AUTO 142 /HPF (0-3)
== END ==
LOC: SKLAB2 12:28
DX: N39.0 Urinary tract infection, site not specified (principal)
CPT/HCPCS: 36415

== ENCOUNTER → 2017-08-11 | Outpatient (REF) ==
[2017-08-11 12:48] LABS: ANION GAP 7 MEQ/L (8-16); BLOOD UREA NITROGEN 37 MG/DL (7-18); CALCIUM LEVEL 8.8 MG/DL (8.8-10.2); CARBON DIOXIDE LEVEL 30 MEQ/L (21-32); CHLORIDE LEVEL 102 MEQ/L (98-107); CREATININE FOR GFR 1.34 MG/DL (0.70-1.30); GLOMERULAR FILTRATION RATE 53.8 (>35); GLUCOSE, FASTING 199 MG/DL (70-100); POTASSIUM SERUM 4.5 MEQ/L (3.5-5.1); SODIUM LEVEL 139 MEQ/L (136-145)
== END ==
LOC: SKLAB2 07:12
DX: N39.0 Urinary tract infection, site not specified (principal)

== ENCOUNTER → 2017-09-06 | Outpatient (REF) ==
[2017-09-06 08:06] LABS: HEMATOCRIT 27.2 % (42.0-52.0); HEMOGLOBIN 9.1 g/dl (13.5-17.5); MEAN CORPUSCULAR HEMOGLOBIN 31.1 pg (27.0-33.0); MEAN CORPUSCULAR HGB CONC 33.5 g/dl (32.0-36.5); MEAN CORPUSCULAR VOLUME 92.8 fl (80.0-96.0); PLATELET COUNT, AUTOMATED 193 10^3/uL (150-450); RED BLOOD COUNT 2.93 10^6/uL (4.30-6.10); RED CELL DISTRIBUTION WIDTH 14.7 % (11.5-14.5); WHITE BLOOD COUNT 8.1 10^3/uL (4.0-10.0)
[2017-09-06 08:19] LABS: ADD MANUAL DIFFER YES; DIFF SLIDE NUMBER 109; POSITIVE MORPH POS FLAG
[2017-09-06 08:21] LABS: ANION GAP 8 MEQ/L (8-16); BANDS 16 % (< 11); BLOOD UREA NITROGEN 43 MG/DL (7-18); CALCIUM LEVEL 9.1 MG/DL (8.8-10.2); CARBON DIOXIDE LEVEL 31 MEQ/L (21-32); CHLORIDE LEVEL 101 MEQ/L (98-107); CREATININE FOR GFR 1.81 MG/DL (0.70-1.30); GLUCOSE, FASTING 251 MG/DL (70-100); LYMPHOCYTES 12 % (16-52); MONOCYTES 2 % (0-8); NEUTROPHILS 70 % (35-75); PLATELET ESTIMATE NORMAL (NORMAL); POTASSIUM SERUM 4.4 MEQ/L (3.5-5.1); SODIUM LEVEL 140 MEQ/L (136-145)
== END ==
LOC: SKLAB2 07:02
DX: R50.9 Fever, unspecified (principal)

== ENCOUNTER → 2017-09-07 | Outpatient (CLI) | payer MEDICARE, MEDICAID | LOC: M RAD 14:17 | DX: G93.89 Other specified disorders of brain (principal); R41.82 Altered mental status, unspecified; Z98.2 Presence of cerebrospinal fluid drainage device | CPT/HCPCS: 70450 ==

== ENCOUNTER → 2017-09-11 | Outpatient (REF) ==
[2017-09-11 10:09] LABS: ANION GAP 9 MEQ/L (8-16); BLOOD UREA NITROGEN 59 MG/DL (7-18); CALCIUM LEVEL 7.8 MG/DL (8.8-10.2); CARBON DIOXIDE LEVEL 28 MEQ/L (21-32); CHLORIDE LEVEL 112 MEQ/L (98-107); CREATININE FOR GFR 2.38 MG/DL (0.70-1.30); GLOMERULAR FILTRATION RATE 27.7 (>35); GLUCOSE, FASTING 239 MG/DL (70-100); POTASSIUM SERUM 4.1 MEQ/L (3.5-5.1); SODIUM LEVEL 149 MEQ/L (136-145)
== END ==
LOC: SKLAB2 07:00
DX: E86.0 Dehydration (principal)

== ENCOUNTER → 2017-09-12 | Outpatient (REF) ==
[2017-09-12 08:53] LABS: ANION GAP 10 MEQ/L (8-16); BLOOD UREA NITROGEN 62 MG/DL (7-18); CALCIUM LEVEL 8.6 MG/DL (8.8-10.2); CARBON DIOXIDE LEVEL 24 MEQ/L (21-32); CHLORIDE LEVEL 111 MEQ/L (98-107); CREATININE FOR GFR 2.09 MG/DL (0.70-1.30); GLOMERULAR FILTRATION RATE 32.2 (>35); GLUCOSE, FASTING 187 MG/DL (70-100); POTASSIUM SERUM 4.3 MEQ/L (3.5-5.1); SODIUM LEVEL 145 MEQ/L (136-145)
== END ==
LOC: SKLAB2 07:00
DX: E86.0 Dehydration (principal)

== ENCOUNTER → 2017-09-13 | Outpatient (REF) ==
[2017-09-13 07:47] LABS: ANION GAP 6 MEQ/L (8-16); BLOOD UREA NITROGEN 58 MG/DL (7-18); CALCIUM LEVEL 7.2 MG/DL (8.8-10.2); CARBON DIOXIDE LEVEL 28 MEQ/L (21-32); CHLORIDE LEVEL 111 MEQ/L (98-107); CREATININE FOR GFR 2.59 MG/DL (0.70-1.30); GLOMERULAR FILTRATION RATE 25.2 (>35); GLUCOSE, FASTING 258 MG/DL (70-100); POTASSIUM SERUM 4.1 MEQ/L (3.5-5.1); SODIUM LEVEL 145 MEQ/L (136-145)
== END ==
LOC: SKLAB2 07:00
DX: E86.0 Dehydration (principal)

== ENCOUNTER → 2017-09-14 | Outpatient (REF) | payer MEDICAID, MEDICARE ==
[2017-09-14 09:41] LABS: ANION GAP 10 MEQ/L (8-16); BLOOD UREA NITROGEN 39 MG/DL (7-18); CARBON DIOXIDE LEVEL 23 MEQ/L (21-32); CHLORIDE LEVEL 110 MEQ/L (98-107); CREATININE FOR GFR 1.77 MG/DL (0.70-1.30); GLUCOSE, FASTING 245 MG/DL (70-100); POTASSIUM SERUM 3.8 MEQ/L (3.5-5.1); SODIUM LEVEL 143 MEQ/L (136-145)
== END ==
LOC: SKLAB2 07:00
DX: E86.0 Dehydration (principal)

== ENCOUNTER → 2017-09-18 | Outpatient (REF) ==
[2017-09-18 08:46] LABS: ANION GAP 9 MEQ/L (8-16); BLOOD UREA NITROGEN 20 MG/DL (7-18); CALCIUM LEVEL 7.8 MG/DL (8.8-10.2); CARBON DIOXIDE LEVEL 26 MEQ/L (21-32); CHLORIDE LEVEL 112 MEQ/L (98-107); CREATININE FOR GFR 1.25 MG/DL (0.70-1.30); GLOMERULAR FILTRATION RATE 58.3 (>35); GLUCOSE, FASTING 87 MG/DL (70-100); POTASSIUM SERUM 4.1 MEQ/L (3.5-5.1); SODIUM LEVEL 147 MEQ/L (136-145)
== END ==
LOC: SKLAB2 07:00
DX: E86.0 Dehydration (principal)

== ENCOUNTER → 2017-09-21 | Outpatient (REF) | payer MEDICARE, MEDICAID ==
[2017-09-21 12:32] LABS: ANION GAP 9 MEQ/L (8-16); BLOOD UREA NITROGEN 19 MG/DL (7-18); CALCIUM LEVEL 7.9 MG/DL (8.8-10.2); CARBON DIOXIDE LEVEL 27 MEQ/L (21-32); CHLORIDE LEVEL 105 MEQ/L (98-107); GLOMERULAR FILTRATION RATE 51.2 (>35); GLUCOSE, FASTING 101 MG/DL (70-100); POTASSIUM SERUM 4.5 MEQ/L (3.5-5.1); SODIUM LEVEL 141 MEQ/L (136-145)
== END ==
LOC: SKLAB2 11:14
DX: R06.02 Shortness of breath (principal); R06.2 Wheezing

== ENCOUNTER → 2017-09-22 | Outpatient (REF) | payer MEDICARE, MEDICAID ==
[2017-09-22 12:13] LABS: ANION GAP 4 MEQ/L (8-16); BLOOD UREA NITROGEN 22 MG/DL (7-18); CALCIUM LEVEL 7.9 MG/DL (8.8-10.2); CARBON DIOXIDE LEVEL 33 MEQ/L (21-32); CHLORIDE LEVEL 105 MEQ/L (98-107); CREATININE FOR GFR 1.51 MG/DL (0.70-1.30); GLOMERULAR FILTRATION RATE 46.9 (>35); GLUCOSE, FASTING 207 MG/DL (70-100); POTASSIUM SERUM 4.4 MEQ/L (3.5-5.1); SODIUM LEVEL 142 MEQ/L (136-145)
== END ==
LOC: SKLAB2 10:54
DX: E86.0 Dehydration (principal)

== ENCOUNTER 2017-09-23 14:33 | Inpatient (IN) | payer MEDICARE, MEDICAID ==
[2017-09-23] MEDS: NS 500 ML IV (15:45)
[2017-09-23 15:49] LABS: HEMATOCRIT 18.3 % (42.0-52.0); MEAN CORPUSCULAR HEMOGLOBIN 30.1 pg (27.0-33.0); MEAN CORPUSCULAR HGB CONC 32.2 g/dl (32.0-36.5); MEAN CORPUSCULAR VOLUME 93.4 fl (80.0-96.0); PLATELET COUNT, AUTOMATED 220 10^3/uL (150-450); RED BLOOD COUNT 1.96 10^6/uL (4.30-6.10); RED CELL DISTRIBUTION WIDTH 14.6 % (11.5-14.5); WHITE BLOOD COUNT 8.4 10^3/uL (4.0-10.0)
[2017-09-23 15:51] LABS: POSITIVE MORPH POS FLAG
[2017-09-23 15:56] LABS: ADD MANUAL DIFFER YES; DIFF SLIDE NUMBER 161; HEMOGLOBIN 5.9 g/dl (13.5-17.5)
[2017-09-23 16:09] LABS: INR 1.78
[2017-09-23 16:10] LABS: PARTIAL THROMBOPLASTIN TIME 44.6 SECONDS (25.4-37.6)
[2017-09-23 16:15] LABS: ATYPICAL LYMPH 2 % (0-5); BANDS 6 % (< 11); LYMPHOCYTES 11 % (16-52); MONOCYTES 1 % (0-8); NEUTROPHILS 80 % (35-75)
[2017-09-23 16:16] LABS: ALBUMIN 1.6 GM/DL (3.2-5.2); ALKALINE PHOSPHATASE 72 U/L (45-117); ALT/SGPT 23 U/L (12-78); ANION GAP 8 MEQ/L (8-16); ANISOCYTOSIS 1+; AST/SGOT 27 U/L (7-37); BILIRUBIN,DIRECT 0.3 MG/DL (0.0-0.2); BILIRUBIN,TOTAL 0.6 MG/DL (0.2-1.0); BLOOD UREA NITROGEN 29 MG/DL (7-18); CALCIUM LEVEL 7.5 MG/DL (8.8-10.2); CARBON DIOXIDE LEVEL 27 MEQ/L (21-32); CHLORIDE LEVEL 105 MEQ/L (98-107); CPK CREATINE PHOSPHOKINASE 90 U/L (39-308); CREATININE FOR GFR 2.07 MG/DL (0.70-1.30); GLOMERULAR FILTRATION RATE 32.6 (>35); GLUCOSE, FASTING 257 MG/DL (70-100); POTASSIUM SERUM 4.4 MEQ/L (3.5-5.1); SODIUM LEVEL 140 MEQ/L (136-145); TOTAL PROTEIN 5.6 GM/DL (6.4-8.2); TOXIC VACUOLATION 1+
[2017-09-23 16:17] LABS: PLATELET CLUMPS SMALL AMT; PLATELET ESTIMATE NORMAL (NORMAL)
[2017-09-23 16:26] LABS: CK-MB VALUE MASS 11.9 NG/ML (<3.6); DIGOXIN LEVEL 1.7 NG/ML (0.5-2.0); MB/CK RELATIVE INDEX 13.22 (< OR =4)
[2017-09-23 16:43] LABS: LACTIC ACID SEPSIS PROTOCOL 2.7 MMOL/L (0.4-2.0)
[2017-09-23 16:43] LABS: TROPONIN I 4.28 NG/ML (< 0.10)
[2017-09-23 17:06] LABS: ABG BASE EXCESS 2.1 (-2.0-2.0); ABG HCO3 26.8 MEQ/L (22.0-26.0); ABG PARTIAL PRESSURE CO2 42.4 mmHg (35.0-45.0); ABG PARTIAL PRESSURE O2 143.2 mmHg (75.0-100.0); ABG STANDARD HCO3 26.3 MEQ/L (22.0-26.0); ABG TOTAL CO2 28.1 MEQ/L (23.0-31.0); ABG pH (ARTERIAL) 7.418 UNITS (7.350-7.450)
[2017-09-23] MEDS ORDERED: BISACODYL 10 MG SUPP PR (17:30)
[2017-09-23] MEDS ORDERED: ACETAMINOPHEN 650 MG SUPP PR (17:30)
[2017-09-23 18:05] LABS: BASO % 0.1 % (0.0-1.0); IMMATURE GRANULOCYTE # 0.3 10^3/uL (0-0); IMMATURE GRANULOCYTE % 3.8 % (0-3.0); LYMPH # 0.6 10^3/uL (1.5-4.5); LYMPH % 7.4 % (24.0-44.0); MONO # 0.6 10^3/uL (0.0-0.8); MONO % 7.5 % (0.0-5.0); NEUTROPHILS # 6.8 10^3/uL (1.8-7.7); NEUTROPHILS % 81.2 % (36.0-66.0); RETIC HEMOGLOBIN EQUIVALENT 20.2 pg (24-36); RETICULOCYTE # 27.8 10^9/L (17-77); RETICULOCYTE % 1.4 % (0.5-1.5)
[2017-09-23 18:12] LABS: FERRITIN 465 NG/ML (26-388); IRON (FE) 12 UG/DL (65-175); PERCENT SATURATION 10.2 % (19.7-50.0); TOTAL IRON BINDING CAPACITY 118 UG/DL (250-450)
[2017-09-23] MEDS ORDERED: MOM 30ML SUSPENSION UDC PO (18:30)
[2017-09-23] MEDS ORDERED: IPRATROPIUM 0.5MG/ALBUTEROL 2.5MG INH SOL UD 3ML (DUONEB)(J7620) NEB (18:30)
[2017-09-23] MEDS ORDERED: GLUCAGON FOR INJ 1 MG VIAL (J1610) SC (19:00)
[2017-09-23] MEDS ORDERED: GLUCOSE 4 GM CHEW TABLET PO (19:00)
[2017-09-23] MEDS ORDERED: DEXTROSE 50% 50 ML SYRINGE IV (19:00)
[2017-09-23] MEDS: D5W/0.45% SODIUM CHLORIDE 1,000 ML IV (19:15)
[2017-09-23 20:41] LABS: KETONE, URINE AUTO RFX NEGATIVE (NEGATIVE); LEUKOCYTE ESTERASE UR AUTO RFX 3+ (NEGATIVE); NITRITE, URINE AUTO RFX NEGATIVE (NEGATIVE); RBC, URINE AUTO RFX 77 /HPF (0-3); SQUAM EPITHELIAL CELL UR AURFX 0 /HPF (0-6); WBC, URINE AUTO RFX TNTC /HPF (0-3)
[2017-09-23] MEDS: CEFTAROLINE FOSAMIL 300 MG in D5W 50 ML IV (20:52)
[2017-09-23] MEDS: SIMVASTATIN 10 MG TAB PO (20:52)
[2017-09-23] MEDS: SENNA 8.6 MG TAB (SENOKOT) PO (20:54)
[2017-09-23] MEDS ORDERED: CARVedilol 3.125 MG TAB PO (21:00)
[2017-09-23 23:45] LABS: HEMATOCRIT 26.6 % (42.0-52.0); MEAN CORPUSCULAR HEMOGLOBIN 29.4 pg (27.0-33.0); MEAN CORPUSCULAR HGB CONC 32.3 g/dl (32.0-36.5); MEAN CORPUSCULAR VOLUME 90.8 fl (80.0-96.0); PLATELET COUNT, AUTOMATED 192 10^3/uL (150-450); RED BLOOD COUNT 2.93 10^6/uL (4.30-6.10); RED CELL DISTRIBUTION WIDTH 15.6 % (11.5-14.5); WHITE BLOOD COUNT 6.9 10^3/uL (4.0-10.0)
[2017-09-23 23:46] LABS: POSITIVE MORPH POS FLAG
[2017-09-23 23:48] LABS: ADD MANUAL DIFFER YES; HEMOGLOBIN 8.6 g/dl (13.5-17.5)
[2017-09-23 23:49] LABS: DIFF SLIDE NUMBER 188
[2017-09-23 23:56] LABS: CPK CREATINE PHOSPHOKINASE 71 U/L (39-308)
[2017-09-23 23:57] LABS: CK-MB VALUE MASS 8.1 NG/ML (<3.6); TROPONIN I 3.14 NG/ML (< 0.10)
[2017-09-24 00:34] LABS: ANISOCYTOSIS 1+; ATYPICAL LYMPH 1 % (0-5); BANDS 3 % (< 11); LYMPHOCYTES 10 % (16-52); METAMYELOCYTES 2 % (0-0); MONOCYTES 3 % (0-8); NEUTROPHILS 81 % (35-75); PLATELET CLUMPS SMALL AMT; PLATELET ESTIMATE NORMAL (NORMAL); TOXIC VACUOLATION 1+
[2017-09-24 05:23] LABS: IMMEDIATE SPIN CROSSMATCH 1 4
[2017-09-24 07:04] LABS: BEDSIDE GLUCOSE 167 MG/DL (83-110)
[2017-09-24] MEDS: HumaLOG INSULIN (NovoLOG) PER UNIT SC (07:30)
[2017-09-24] MEDS: CARVedilol 3.125 MG TAB PO ×3 (09:00→20:25)
[2017-09-24] MEDS: ASPIRIN 81 MG ENTERIC TAB PO ×2 (09:00→09:43)
[2017-09-24] MEDS: DIGOXIN 0.0625MG PER 1/2TABLET PO ×2 (09:00→09:42)
[2017-09-24] MEDS: CYANOCOBALAMIN 500 MCG TAB PO ×2 (09:00→09:43)
[2017-09-24] MEDS: ESCITALOPRAM OXALATE 10 MG TAB (LEXAPRO) PO ×2 (09:00→09:43)
[2017-09-24] MEDS: MULTIVITAMINS/MINERALS THERAP 1 TAB PO ×2 (09:00→09:43)
[2017-09-24] MEDS: FERROUS SULFATE 325MG TAB PO (09:43)
[2017-09-24] MEDS: FINASTERIDE 5 MG TAB PO (09:43)
[2017-09-24] MEDS: CEFTAROLINE FOSAMIL 300 MG in D5W 50 ML IV (09:43)
[2017-09-24] MEDS: ENOXAPARIN 30 MG/0.3 ML SYR (J1650) SC (09:44)
[2017-09-24] MEDS: D5W/0.45% SODIUM CHLORIDE 1,000 ML IV ×3 (09:47→20:25)
[2017-09-24 09:50] LABS: HEMATOCRIT 33.3 % (42.0-52.0); MEAN CORPUSCULAR HEMOGLOBIN 30.2 pg (27.0-33.0); MEAN CORPUSCULAR HGB CONC 33.3 g/dl (32.0-36.5); MEAN CORPUSCULAR VOLUME 90.7 fl (80.0-96.0); PLATELET COUNT, AUTOMATED 201 10^3/uL (150-450); RED BLOOD COUNT 3.67 10^6/uL (4.30-6.10); RED CELL DISTRIBUTION WIDTH 14.9 % (11.5-14.5); WHITE BLOOD COUNT 7.8 10^3/uL (4.0-10.0)
[2017-09-24 10:02] LABS: ADD MANUAL DIFFER YES; DIFF SLIDE NUMBER 78; HEMOGLOBIN 11.1 g/dl (13.5-17.5); POSITIVE MORPH POS FLAG
[2017-09-24 10:26] LABS: ANION GAP 8 MEQ/L (8-16); BLOOD UREA NITROGEN 29 MG/DL (7-18); CALCIUM LEVEL 7.5 MG/DL (8.8-10.2); CARBON DIOXIDE LEVEL 27 MEQ/L (21-32); CHLORIDE LEVEL 110 MEQ/L (98-107); CREATININE FOR GFR 1.42 MG/DL (0.70-1.30); GLOMERULAR FILTRATION RATE 50.3 (>35); GLUCOSE, FASTING 155 MG/DL (70-100); POTASSIUM SERUM 4.2 MEQ/L (3.5-5.1); SODIUM LEVEL 145 MEQ/L (136-145)
[2017-09-24 10:59] LABS: ATYPICAL LYMPH 1 % (0-5); BANDS 6 % (< 11); LYMPHOCYTES 13 % (16-52); MONOCYTES 1 % (0-8); NEUTROPHILS 79 % (35-75); PLATELET ESTIMATE NORMAL (NORMAL)
[2017-09-24 11:00] LABS: ANISOCYTOSIS 1+
[2017-09-24] MEDS: KETOROLAC 30 MG/ML VIAL (J1885) IV (14:23)
[2017-09-24] MEDS: SENNA 8.6 MG TAB (SENOKOT) PO (20:26)
[2017-09-24] MEDS ORDERED: ATORVASTATIN 20 MG TAB PO (21:00)
[2017-09-25] MEDS: D5W/0.45% SODIUM CHLORIDE 1,000 ML IV ×2 (05:35→15:22)
[2017-09-25] MEDS: ASPIRIN 81 MG ENTERIC TAB PO (09:00)
[2017-09-25] MEDS: ENOXAPARIN 30 MG/0.3 ML SYR (J1650) SC (09:00)
[2017-09-25] MEDS: CARVedilol 3.125 MG TAB PO (09:00)
[2017-09-25] MEDS: DIGOXIN 0.0625MG PER 1/2TABLET PO (09:00)
[2017-09-25] MEDS: MULTIVITAMINS/MINERALS THERAP 1 TAB PO (09:00)
[2017-09-25] MEDS: CYANOCOBALAMIN 500 MCG TAB PO (09:00)
[2017-09-25] MEDS: ESCITALOPRAM OXALATE 10 MG TAB (LEXAPRO) PO (09:00)
[2017-09-25] MEDS ORDERED: LORazepam 0.5 MG TAB PO (10:15)
[2017-09-25] MEDS ORDERED: MORPHINE 10MG/0.5ML ORAL CONCENTRATE SOLUTION U/D SL (10:15)
[2017-09-25] MEDS ORDERED: HYOSCYAMINE SULFATE 0.125 MG SUBL TABLET SL (12:15)
== END 2017-09-26 08:43 | disposition hospice, inpatient (51) | DRG 280 ==
LOC: M MS4PR 09-25 21:56 → M ED 14:33 → M ED INP 17:41 → M PCU 22:08
PROC: 30233N1 Transfusion of Nonautologous Red Blood Cells into Peripheral Vein, Percutaneous Approach (ICD-10-PCS; principal; 2017-09-23)
DX: I21.4 Non-ST elevation (NSTEMI) myocardial infarction (principal); J69.0 Pneumonitis due to inhalation of food and vomit; N17.9 Acute kidney failure, unspecified; I50.30 Unspecified diastolic (congestive) heart failure; I13.0 Hypertensive heart and chronic kidney disease with heart failure and stage 1 through stage 4 chronic kidney disease, or unspecified chronic kidney disease; N39.0 Urinary tract infection, site not specified; G91.2 (Idiopathic) normal pressure hydrocephalus; Z66 Do not resuscitate; Z51.5 Encounter for palliative care; D64.9 Anemia, unspecified; N18.9 Chronic kidney disease, unspecified; E86.0 Dehydration; I49.5 Sick sinus syndrome; G47.33 Obstructive sleep apnea (adult) (pediatric); I48.91 Unspecified atrial fibrillation; N40.0 Benign prostatic hyperplasia without lower urinary tract symptoms; R62.7 Adult failure to thrive; E11.9 Type 2 diabetes mellitus without complications; F03.90 Unspecified dementia, unspecified severity, without behavioral disturbance, psychotic disturbance, mood disturbance, and anxiety; Z98.2 Presence of cerebrospinal fluid drainage device; Z95.0 Presence of cardiac pacemaker; Z86.73 Personal history of transient ischemic attack (TIA), and cerebral infarction without residual deficits; Z79.84 Long term (current) use of oral hypoglycemic drugs; Z79.82 Long term (current) use of aspirin; Z79.01 Long term (current) use of anticoagulants; Z79.899 Other long term (current) drug therapy; Z96.642 Presence of left artificial hip joint

== ENCOUNTER → 2017-09-23 | Outpatient (REF) ==
[2017-09-23 12:06] LABS: HEMATOCRIT 19.9 % (42.0-52.0); MEAN CORPUSCULAR HEMOGLOBIN 29.9 pg (27.0-33.0); MEAN CORPUSCULAR HGB CONC 31.7 g/dl (32.0-36.5); MEAN CORPUSCULAR VOLUME 94.3 fl (80.0-96.0); PLATELET COUNT, AUTOMATED 223 10^3/uL (150-450); RED BLOOD COUNT 2.11 10^6/uL (4.30-6.10); RED CELL DISTRIBUTION WIDTH 14.5 % (11.5-14.5); WHITE BLOOD COUNT 9.9 10^3/uL (4.0-10.0)
[2017-09-23 12:12] LABS: HEMOGLOBIN 6.3 g/dl (13.5-17.5); POSITIVE MORPH POS FLAG
[2017-09-23 12:13] LABS: ADD MANUAL DIFFER YES; DIFF SLIDE NUMBER 132
[2017-09-23 12:27] LABS: ANION GAP 9 MEQ/L (8-16); BLOOD UREA NITROGEN 30 MG/DL (7-18); CALCIUM LEVEL 7.4 MG/DL (8.8-10.2); CARBON DIOXIDE LEVEL 26 MEQ/L (21-32); CHLORIDE LEVEL 105 MEQ/L (98-107); CREATININE FOR GFR 2.11 MG/DL (0.70-1.30); GLOMERULAR FILTRATION RATE 31.9 (>35); GLUCOSE, FASTING 212 MG/DL (70-100); POTASSIUM SERUM 4.3 MEQ/L (3.5-5.1); SODIUM LEVEL 140 MEQ/L (136-145)
[2017-09-23 12:45] LABS: ATYPICAL LYMPH 2 % (0-5); BANDS 13 % (< 11); HYPOCHROMASIA 1+; LYMPHOCYTES 8 % (16-52); MONOCYTES 1 % (0-8); NEUTROPHILS 76 % (35-75); PLATELET ESTIMATE NORMAL (NORMAL)
[2017-09-23 12:46] LABS: ANISOCYTOSIS 1+
== END ==
LOC: SKLAB2 11:07
DX: E86.0 Dehydration (principal)